=== PATIENT | female | born 1940 | race Caucasian/White ===

== ENCOUNTER 2021-02-08 15:19 | Inpatient (IN) | payer OTHER ==
[~2021-02-08] VITALS: Ht 160 cm; Wt 53.5 kg
[2021-02-08] MEDS ORDERED: GLUCAGON HYDROCHLORIDE (RDNA) 1 MG VIAL IM ONE (18:45)
[2021-02-08] MEDS ORDERED: FAMOTIDINE (10MG/ML) 2ML VL IV ONE (19:15)
[2021-02-08] MEDS ORDERED: GLUCAGON HYDROCHLORIDE (RDNA) 1 MG VIAL IV ONE ×2 (19:15→19:45)
[2021-02-08] MEDS ORDERED: D5W/SOD CHLO 0.9% 1,000 ML IV SCH (21:15)
[2021-02-08] MEDS ORDERED: ONDANSETRON HCL 4 MG/2 ML VIAL IV PRN (21:15)
[2021-02-08 21:20] LABS: Basophils # (auto) 0.1 10 ^3/uL (0-0.2); Basophils % (auto) 0.6 % (0.0-2.0); Eosinophils # (auto) 0.1 10 ^3/uL (0-0.8); Eosinophils % (auto) 0.7 % (0.0-7.0); Hematocrit 42.7 % (36.0-46.0); Hemoglobin 14.3 g/dL (12.2-16.2); Lymphocytes % (auto) 6.3 % (10.0-50.0); Mean Corpuscular Hgb Conc. 33.6 g/dL (32.0-36.0); Mean Corpuscular Volume 89.3 fL (80.0-100.0); Monocytes % (auto) 6.4 % (0.0-12.0); Neutrophils # (auto) 13.5 10 ^3/uL (1.6-8.6); Red Blood Cells 4.78 10^6/uL (4.0-5.20); Red Cell Distribution Width 13.5 % (11.8-14.3); White Blood Cell 15.7 10^3/uL (4.4-10.8)
[2021-02-08 21:28] LABS: Albumin 3.5 g/dL (3.4-5.0); BUN/Creatinine Ratio 27.3; Calcium 9.4 mg/dL (8.5-10.1); Magnesium 1.9 mg/dL (1.6-2.6); Potassium 3.5 mmol/L (3.5-5.1)
[2021-02-08 21:31] LABS: Bilirubin, Total 0.8 mg/dL (0.2-1.0); Total Protein 7.7 g/dL (6.4-8.2)
[2021-02-08 21:35] LABS: INR 1.06 (0.9-1.15)
[2021-02-08] MEDS: D5W/SOD CHL 0.45% 1,000 ML IV SCH (22:30)
[2021-02-09 03:51] LABS: Basophils # (auto) 0.1 10 ^3/uL (0-0.2); Basophils % (auto) 0.9 % (0.0-2.0); Eosinophils # (auto) 0 10 ^3/uL (0-0.8); Eosinophils % (auto) 0.2 % (0.0-7.0); Hematocrit 45.4 % (36.0-46.0); Hemoglobin 14.8 g/dL (12.2-16.2); Lymphocytes # (auto) 0.8 10 ^3/uL (0.4-5.4); Lymphocytes % (auto) 6.2 % (10.0-50.0); Mean Corpuscular Hemoglobin 30.3 pg (28.0-32.0); Mean Corpuscular Hgb Conc. 32.7 g/dL (32.0-36.0); Mean Corpuscular Volume 92.8 fL (80.0-100.0); Monocytes # (auto) 0.8 10 ^3/uL (0-1.3); Monocytes % (auto) 6.3 % (0.0-12.0); Neutrophils # (auto) 11.3 10 ^3/uL (1.6-8.6); Neutrophils % (auto) 86.4 % (37.0-80.0); Red Blood Cells 4.89 10^6/uL (4.0-5.20); Red Cell Distribution Width 14.1 % (11.8-14.3)
[2021-02-09 04:13] LABS: BUN/Creatinine Ratio 30.5; Calcium 9.9 mg/dL (8.5-10.1); Potassium 3.6 mmol/L (3.5-5.1)
[2021-02-09] MEDS ORDERED: cefTRIAXone 1GM/50ML D5W 50 ML IV SCH (09:00)
[2021-02-09] MEDS ORDERED: SODIUM CHLORIDE LOCK 10 ML ONE (09:12)
[2021-02-09] MEDS ORDERED: MIDAZOLAM HCL 5 MG/ML-1ML VIAL ONE (09:12)
[2021-02-09] MEDS ORDERED: diphenhdrAMINE HCL 50 MG/1 ML VL ONE (09:12)
[2021-02-09] MEDS ORDERED: LIDOCAINE VISCOUS 2% 15ML UD ONE (09:12)
[2021-02-09] MEDS ORDERED: fentaNYL CITRATE 100 MCG/2 ML VL ONE (09:13)
[2021-02-09] MEDS ORDERED: PANTOPRAZOLE 40 MG/10 ML VIAL INJ IV SCH (10:00)
[2021-02-09] MEDS ORDERED: FAMOTIDINE (10MG/ML) 2ML VL IV SCH (10:00)
[2021-02-09] MEDS: D5W/SOD CHL 0.45% 1,000 ML IV SCH (12:00)
[2021-02-09 13:00] VITALS: BP 120/76
== END 2021-02-09 13:46 | disposition left against medical advice (07) | DRG 393 ==
LOC: ER 15:19 → OVERFLOW 21:12
PROVIDERS: ADMIT Nurse Practitioner; ATTEND Internal Medicine
DX: T18.128A Food in esophagus causing other injury, initial encounter (principal); U07.1 COVID-19; I10 Essential (primary) hypertension; Z66 Do not resuscitate; M19.90 Unspecified osteoarthritis, unspecified site; K21.9 Gastro-esophageal reflux disease without esophagitis; X58.XXXA Exposure to other specified factors, initial encounter; Z53.29 Procedure and treatment not carried out because of patient's decision for other reasons; Z88.5 Allergy status to narcotic agent; Y93.89 Activity, other specified; Y92.89 Other specified places as the place of occurrence of the external cause; Y99.8 Other external cause status
CPT/HCPCS: 36415; 70490; 71045; 80048; 80053; 83735; 85025; 85610; 87426; 96365; 96375; G0378; J0696; J2250; J3490

== ENCOUNTER → 2021-05-22 | Outpatient (CLI) | payer OTHER ==
[2021-05-22 12:36] LABS: Basophils # (auto) 0.1 10 ^3/uL (0-0.2); Basophils % (auto) 1.5 % (0.0-2.0); Eosinophils # (auto) 0.1 10 ^3/uL (0-0.8); Eosinophils % (auto) 1.8 % (0.0-7.0); Hematocrit 39.2 % (36.0-46.0); Hemoglobin 13.1 g/dL (12.2-16.2); Lymphocytes # (auto) 0.9 10 ^3/uL (0.4-5.4); Lymphocytes % (auto) 20.6 % (10.0-50.0); Mean Corpuscular Hemoglobin 30.1 pg (28.0-32.0); Mean Corpuscular Hgb Conc. 33.5 g/dL (32.0-36.0); Mean Corpuscular Volume 89.9 fL (80.0-100.0); Monocytes # (auto) 0.4 10 ^3/uL (0-1.3); Monocytes % (auto) 8.4 % (0.0-12.0); Neutrophils # (auto) 3.1 10 ^3/uL (1.6-8.6); Neutrophils % (auto) 67.7 % (37.0-80.0); Nucleated Red Blood Cells % 0.2 %; Red Blood Cells 4.36 10^6/uL (4.0-5.20); Red Cell Distribution Width 13.1 % (11.8-14.3); White Blood Cell 4.6 10^3/uL (4.4-10.8)
[2021-05-22 12:38] LABS: Urine Blood Negative /uL (Negative)
[2021-05-22 12:51] LABS: INR 1.06 (0.9-1.15); Partial Thromboplastin Time 26.2 sec (23.6-33.0)
[2021-05-22 13:15] LABS: Albumin 3.4 g/dL (3.4-5.0); Calcium 9.3 mg/dL (8.5-10.1); Potassium 3.6 mmol/L (3.5-5.1)
[2021-05-22 13:18] LABS: BUN/Creatinine Ratio 17.5; Bilirubin, Total 0.4 mg/dL (0.2-1.0); Total Protein 6.8 g/dL (6.4-8.2)
== END | disposition home or self-care (01) ==
LOC: LAB 12:17
PROVIDERS: ATTEND Specialist
DX: Z01.812 Encounter for preprocedural laboratory examination (principal); H25.11 Age-related nuclear cataract, right eye; Z79.01 Long term (current) use of anticoagulants
CPT/HCPCS: 36415; 80053; 81003; 85025; 85610; 85730

== ENCOUNTER → 2021-10-26 | Outpatient (CLI) | payer OTHER ==
[2021-10-26 09:37] LABS: Basophils # (auto) 0.1 10 ^3/uL (0-0.2); Basophils % (auto) 1.2 % (0.0-2.0); Eosinophils # (auto) 0.2 10 ^3/uL (0-0.8); Eosinophils % (auto) 2.8 % (0.0-7.0); Hematocrit 40.6 % (36.0-46.0); Hemoglobin 13.5 g/dL (12.2-16.2); Lymphocytes # (auto) 0.9 10 ^3/uL (0.4-5.4); Lymphocytes % (auto) 15.1 % (10.0-50.0); Mean Corpuscular Hemoglobin 29.9 pg (28.0-32.0); Mean Corpuscular Hgb Conc. 33.4 g/dL (32.0-36.0); Mean Corpuscular Volume 89.5 fL (80.0-100.0); Monocytes # (auto) 0.5 10 ^3/uL (0-1.3); Neutrophils # (auto) 4.1 10 ^3/uL (1.6-8.6); Neutrophils % (auto) 72.9 % (37.0-80.0); Red Blood Cells 4.53 10^6/uL (4.0-5.20); Red Cell Distribution Width 13.2 % (11.8-14.3); White Blood Cell 5.7 10^3/uL (4.4-10.8)
[2021-10-26 09:51] LABS: Potassium 3.9 mmol/L (3.5-5.1)
[2021-10-26 12:01] LABS: BUN/Creatinine Ratio 18.2
[2021-10-26 12:02] LABS: Albumin 3.2 g/dL (3.4-5.0); Bilirubin, Total 0.8 mg/dL (0.2-1.0); Calcium 8.7 mg/dL (8.5-10.1); Total Protein 7.3 g/dL (6.4-8.2)
== END | disposition home or self-care (01) ==
LOC: LAB 09:11
PROVIDERS: ATTEND Student in an Organized Health Care Education/Training Program
DX: E78.49 Other hyperlipidemia (principal); F33.1 Major depressive disorder, recurrent, moderate; M81.0 Age-related osteoporosis without current pathological fracture; K21.9 Gastro-esophageal reflux disease without esophagitis; I10 Essential (primary) hypertension
CPT/HCPCS: 36415; 80053; 80061; 85025

== ENCOUNTER → 2022-01-25 | Outpatient (CLI) | payer OTHER ==
[2022-01-25 12:21] LABS: Potassium 4.1 mmol/L (3.5-5.1)
[2022-01-25 12:26] LABS: BUN/Creatinine Ratio 24.1; Calcium 9.5 mg/dL (8.5-10.1)
[2022-01-26 15:39] LABS: Folate (Folic Acid) 13.64 ng/mL (5.38-24)
== END | disposition home or self-care (01) ==
LOC: LAB 11:25
PROVIDERS: ATTEND Student in an Organized Health Care Education/Training Program
DX: G62.9 Polyneuropathy, unspecified (principal)
CPT/HCPCS: 36415; 80048; 82607; 82746; 83036; 84443

== ENCOUNTER 2022-04-03 09:39 | Inpatient (IN) | payer OTHER ==
[~2022-04-03] VITALS: Ht 157.5 cm; Wt 61.0 kg
[2022-04-03 00:30] VITALS: BP 128/74
[2022-04-03] MEDS ORDERED: dilTIAZem 25 MG/5 ML VIAL IV ONE (10:00)
[2022-04-03 10:48] LABS: Basophils # (auto) 0 10 ^3/uL (0-0.2); Basophils % (auto) 0.3 % (0.0-2.0); Eosinophils # (auto) 0 10 ^3/uL (0-0.8); Eosinophils % (auto) 0.1 % (0.0-7.0); Hematocrit 41.1 % (36.0-46.0); Hemoglobin 13.6 g/dL (12.2-16.2); Lymphocytes # (auto) 0.5 10 ^3/uL (0.4-5.4); Lymphocytes % (auto) 6.2 % (10.0-50.0); Mean Corpuscular Hemoglobin 29.6 pg (28.0-32.0); Mean Corpuscular Hgb Conc. 33.1 g/dL (32.0-36.0); Mean Corpuscular Volume 89.3 fL (80.0-100.0); Monocytes # (auto) 0.3 10 ^3/uL (0-1.3); Monocytes % (auto) 3.5 % (0.0-12.0); Neutrophils # (auto) 7.1 10 ^3/uL (1.6-8.6); Neutrophils % (auto) 89.9 % (37.0-80.0); Red Cell Distribution Width 13.4 % (11.8-14.3); White Blood Cell 7.9 10^3/uL (4.4-10.8)
[2022-04-03 10:55] LABS: INR 1.02 (0.9-1.15); Partial Thromboplastin Time 25.9 sec (24.6-33.4)
[2022-04-03 11:09] LABS: Potassium 3.2 mmol/L (3.5-5.1)
[2022-04-03 11:16] LABS: Albumin 3.7 g/dL (3.4-5.0); BUN/Creatinine Ratio 17.8; Bilirubin, Total 0.7 mg/dL (0.2-1.0); Total Protein 7.1 g/dL (6.4-8.2)
[2022-04-03] MEDS ORDERED: ONDANSETRON HCL 4 MG/2 ML VIAL IV ONE ×2 (12:45→16:15)
[2022-04-03] MEDS ORDERED: POTASSIUM EFFERVESENT TAB 25 MEQ PO ONE (13:45)
[2022-04-03] MEDS ORDERED: ENOXAPARIN SOD 60 MG/0.6 ML SYRINGE SC ONE (13:45)
[2022-04-03] MEDS ORDERED: MORPHINE SULFATE INJ 2 MG/ml SYRG IV PRN (16:00)
[2022-04-03] MEDS ORDERED: NITROGLYCERIN 0.4 MG SL TAB SL PRN (16:00)
[2022-04-03] MEDS ORDERED: OMNIPAQUE ORAL SOLN 500ml 12mg/ml PO ONE (16:10)
[2022-04-03] MEDS ORDERED: MAGNESIUM SULFATE 1GM/100ML 100 ML IV ONE (16:15)
[2022-04-03] MEDS ORDERED: PANTOPRAZOLE 40mg/50ML NS AE 50 ML IV ONE (16:15)
[2022-04-03] MEDS ORDERED: SODIUM CHLORIDE 0.9% 1,000 ML IV ONE (16:15)
[2022-04-03] MEDS ORDERED: POTASSIUM CHLORIDE 40 MEQ, LIDOCAINE 1% (LOCAL ANESTH.) 4 ML in SODIUM CHL 0.9% 250 ML IV ONE (16:15)
[2022-04-03 16:36] LABS: Urine Bacteria NONE SEEN /hpf (None Seen); Urine Blood Negative /uL (Negative); Urine Hyaline Cast FEW /lpf (0 - 2); Urine Mucus FEW (None Seen); Urine Specific Gravity 1.012 (1.001-1.035); Urine WBC 1 /hpf (0 - 5)
[2022-04-03 16:58] LABS: Alcohol, Urine < 3.0 mg/dL (0-10); Amphetamine Screen, Urine NEGATIVE (NEGATIVE); Barbiturate Scree,Urine NEGATIVE (NEGATIVE); Benzodiazephine Screen, Urine NEGATIVE (NEGATIVE); Cannabinoid Screen, Urine NEGATIVE (NEGATIVE); Cocaine Screen, Urine NEGATIVE (NEGATIVE); Opiate Scree,Urine NEGATIVE (NEGATIVE); Phencyclidine Screen, Urine NEGATIVE (NEGATIVE)
[2022-04-03] MEDS: ATORVASTATIN 20 MG TAB PO SCH (16:59)
[2022-04-03] MEDS ORDERED: IOHEXOL 300 MG/ML 100ML BOTTLE IJ ONE (17:53)
[2022-04-03 18:22] LABS: INR 1.03 (0.9-1.15)
[2022-04-03 18:33] LABS: Cholesterol 143 mg/dL (< 200)
[2022-04-03 18:35] LABS: HDL Cholesterol 71 mg/dL (40-59); LDL Cholesterol 70 mg/dL (< 100); Triglycerides 58 mg/dL (< 150)
[2022-04-03] MEDS ORDERED: IOHEXOL 350 MG/ML 100ML IJ ONE (20:56)
[2022-04-03] MEDS: METOPROLOL TARTRATE 25 MG TAB PO SCH (22:00)
[2022-04-03] MEDS: AMIODARONE HCL 200 MG TAB PO SCH (22:00)
[2022-04-03 22:32] LABS: Hematocrit 42.1 % (36.0-46.0); Hemoglobin 14.1 g/dL (12.2-16.2)
[2022-04-03] MEDS: ONDANSETRON HCL 4 MG/2 ML VIAL IV PRN (22:53)
[2022-04-04 00:30] VITALS: BP 128/74
[2022-04-04] MEDS: D5W/SOD CHL 0.45%/KCL 20MEQ 1,000 ML IV SCH ×2 (01:13→11:40)
[2022-04-04] MEDS: ONDANSETRON HCL 4 MG/2 ML VIAL IV PRN (02:54)
[2022-04-04] MEDS ORDERED: CYCL-839 PO (03:30)
[2022-04-04] MEDS ORDERED: SIMV-8 PO (03:30)
[2022-04-04] MEDS ORDERED: TRAM50TA2 PO (03:30)
[2022-04-04] MEDS ORDERED: PARO1TAB33 PO (03:30)
[2022-04-04 05:00] VITALS: BP 121/67
[2022-04-04] MEDS: metroNIDAZOLE 500MG/100ML 100 ML IV SCH ×2 (05:51→14:30)
[2022-04-04 06:51] LABS: Basophils # (auto) 0 10 ^3/uL (0-0.2); Basophils % (auto) 0.1 % (0.0-2.0); Eosinophils # (auto) 0 10 ^3/uL (0-0.8); Hematocrit 37.6 % (36.0-46.0); Hemoglobin 12.5 g/dL (12.2-16.2); Lymphocytes # (auto) 0.2 10 ^3/uL (0.4-5.4); Lymphocytes % (auto) 1.4 % (10.0-50.0); Mean Corpuscular Hemoglobin 30.3 pg (28.0-32.0); Mean Corpuscular Hgb Conc. 33.3 g/dL (32.0-36.0); Mean Corpuscular Volume 91.1 fL (80.0-100.0); Monocytes # (auto) 1.2 10 ^3/uL (0-1.3); Monocytes % (auto) 7.2 % (0.0-12.0); Neutrophils # (auto) 15.5 10 ^3/uL (1.6-8.6); Neutrophils % (auto) 91.3 % (37.0-80.0); Red Blood Cells 4.13 10^6/uL (4.0-5.20); Red Cell Distribution Width 13.3 % (11.8-14.3)
[2022-04-04 07:06] LABS: Potassium 3.5 mmol/L (3.5-5.1)
[2022-04-04 07:14] LABS: Albumin 2.9 g/dL (3.4-5.0); BUN/Creatinine Ratio 30.3; Bilirubin, Total 0.8 mg/dL (0.2-1.0); Calcium 8.9 mg/dL (8.5-10.1); Total Protein 5.9 g/dL (6.4-8.2)
[2022-04-04] MEDS: ceFAZolin 2 GM in D5W 5% 100 ML IV SCH ×2 (07:44→14:31)
[2022-04-04 09:00] VITALS: BP 106/53
[2022-04-04] MEDS ORDERED: ASPirin 81 mg TAB PO SCH (10:00)
[2022-04-04] MEDS: AMIODARONE HCL 200 MG TAB PO SCH ×2 (11:41→22:05)
[2022-04-04] MEDS: METOPROLOL TARTRATE 25 MG TAB PO SCH ×2 (11:42→22:07)
[2022-04-04 13:00] VITALS: BP 112/53
[2022-04-04 16:33] VITALS: BP 104/53
[2022-04-04] MEDS ORDERED: ASPirin 81 mg TAB PO ONE (17:30)
[2022-04-04] MEDS: PIPERACILLIN-TAZOB 3.375GM 100 ML IV SCH (18:25)
[2022-04-04 22:00] VITALS: BP 106/49
[2022-04-04] MEDS: ATORVASTATIN 20 MG TAB PO SCH (22:06)
[2022-04-05] MEDS: PIPERACILLIN-TAZOB 3.375GM 100 ML IV SCH ×5 (00:28→23:46)
[2022-04-05 04:56] VITALS: BP 105/42
[2022-04-05 07:05] LABS: Basophils # (auto) 0.1 10 ^3/uL (0-0.2); Basophils % (auto) 0.5 % (0.0-2.0); Eosinophils # (auto) 0.2 10 ^3/uL (0-0.8); Eosinophils % (auto) 1.4 % (0.0-7.0); Hematocrit 32.4 % (36.0-46.0); Hemoglobin 10.8 g/dL (12.2-16.2); Lymphocytes # (auto) 0.7 10 ^3/uL (0.4-5.4); Lymphocytes % (auto) 5.9 % (10.0-50.0); Mean Corpuscular Hemoglobin 30.3 pg (28.0-32.0); Mean Corpuscular Hgb Conc. 33.5 g/dL (32.0-36.0); Mean Corpuscular Volume 90.5 fL (80.0-100.0); Monocytes % (auto) 7.9 % (0.0-12.0); Neutrophils # (auto) 10.7 10 ^3/uL (1.6-8.6); Neutrophils % (auto) 84.3 % (37.0-80.0); Red Blood Cells 3.58 10^6/uL (4.0-5.20); Red Cell Distribution Width 13.5 % (11.8-14.3); White Blood Cell 12.7 10^3/uL (4.4-10.8)
[2022-04-05 07:08] LABS: BUN/Creatinine Ratio 27.1; Potassium 3.8 mmol/L (3.5-5.1)
[2022-04-05 09:00] VITALS: BP 105/56
[2022-04-05] MEDS: ASPirin 81 mg TAB PO SCH (09:48)
[2022-04-05] MEDS: AMIODARONE HCL 200 MG TAB PO SCH ×2 (09:48→22:49)
[2022-04-05] MEDS: METOPROLOL TARTRATE 25 MG TAB PO SCH ×2 (09:55→22:49)
[2022-04-05 13:00] VITALS: BP 104/50
[2022-04-05 17:00] VITALS: BP 103/47
[2022-04-05 22:00] VITALS: BP 120/60
[2022-04-05] MEDS: ATORVASTATIN 20 MG TAB PO SCH (22:49)
[2022-04-06 05:00] VITALS: BP 104/51
[2022-04-06] MEDS: PIPERACILLIN-TAZOB 3.375GM 100 ML IV SCH ×3 (06:32→17:43)
[2022-04-06 08:57] VITALS: BP 113/52
[2022-04-06] MEDS: AMIODARONE HCL 200 MG TAB PO SCH ×2 (09:21→22:10)
[2022-04-06] MEDS: ASPirin 81 mg TAB PO SCH (09:22)
[2022-04-06] MEDS: METOPROLOL TARTRATE 25 MG TAB PO SCH ×2 (09:22→22:11)
[2022-04-06 16:16] VITALS: BP 125/65
[2022-04-06 22:00] VITALS: BP 115/56
[2022-04-06] MEDS: ATORVASTATIN 20 MG TAB PO SCH (22:10)
[2022-04-07] MEDS: PIPERACILLIN-TAZOB 3.375GM 100 ML IV SCH ×3 (00:07→11:09)
[2022-04-07 05:00] VITALS: BP 125/54
[2022-04-07 09:00] VITALS: BP 131/55
[2022-04-07] MEDS: ASPirin 81 mg TAB PO SCH (09:50)
[2022-04-07] MEDS: AMIODARONE HCL 200 MG TAB PO SCH (09:50)
[2022-04-07] MEDS: METOPROLOL TARTRATE 25 MG TAB PO SCH (09:51)
[2022-04-07] MEDS: THROAT LOZENGES(CEPASTAT) MT PRN ×2 (10:07→12:48)
[2022-04-07 13:00] VITALS: BP 140/64
[2022-04-07] MEDS ORDERED: MET25T PO (14:08)
[2022-04-07] MEDS ORDERED: AMIO200T4 PO (14:08)
[2022-04-07] MEDS ORDERED: ASPI-325 PO (14:08)
[2022-04-07 17:00] VITALS: BP 125/56
[2022-04-07] MEDS ORDERED: LOPERAMIDE HCL 2 MG CAP/TAB PO ONE (17:00)
[2022-04-07 17:27] VITALS: BP 140/64
== END 2022-04-07 17:40 | disposition home or self-care (01) | DRG 280 ==
LOC: ER 09:39 → EDBD 09:39 → TELE 15:58 → TELE-WESTW 23:52
PROVIDERS: ADMIT Registered Nurse; ATTEND Internal Medicine
DX: I21.4 Non-ST elevation (NSTEMI) myocardial infarction (principal); I50.23 Acute on chronic systolic (congestive) heart failure; J96.00 Acute respiratory failure, unspecified whether with hypoxia or hypercapnia; K56.2 Volvulus; N39.0 Urinary tract infection, site not specified; I48.20 Chronic atrial fibrillation, unspecified; K92.2 Gastrointestinal hemorrhage, unspecified; E87.6 Hypokalemia; K31.89 Other diseases of stomach and duodenum; Z20.822 Contact with and (suspected) exposure to COVID-19; K44.9 Diaphragmatic hernia without obstruction or gangrene; I11.0 Hypertensive heart disease with heart failure; R13.12 Dysphagia, oropharyngeal phase; K21.9 Gastro-esophageal reflux disease without esophagitis; M19.90 Unspecified osteoarthritis, unspecified site; M81.0 Age-related osteoporosis without current pathological fracture; G89.29 Other chronic pain; M54.9 Dorsalgia, unspecified; Z88.5 Allergy status to narcotic agent; Z88.8 Allergy status to other drugs, medicaments and biological substances; Z79.899 Other long term (current) drug therapy; Z90.710 Acquired absence of both cervix and uterus
CPT/HCPCS: 36415; 36600; 70450; 71045; 71260; 74177; 80048; 80053; 80061; 80307; 81001; 82805; 83036; 83735; 83880; 84443; 84484; 85014; 85018; 85025; 85610; 85730; 86850; 86900; 86901; 87086; 87426; 93005; 93306; 96365; 96366; 96367; 96368; 96372; 96375; 96376; G0378; J0690; J2001; J2405; J2543; J3490; J7060

== ENCOUNTER 2022-09-02 09:25 | Inpatient (IN) | payer OTHER ==
[~2022-09-02] VITALS: Ht 160 cm; Wt 54.5 kg
[~2022-09-02 09:25] MED LIST: AMIO200T4 PO; ASPI-325 PO; MET25T PO; SIMV-8 PO
[2022-09-02] MEDS ORDERED: PROCHLORPERAZINE EDISYLATE 5 MG/ML 2ML VIAL IM ONE (10:00)
[2022-09-02 10:21] LABS: Basophils # (auto) 0.1 10 ^3/uL (0-0.2); Basophils % (auto) 1.4 % (0.0-2.0); Eosinophils # (auto) 0.1 10 ^3/uL (0-0.8); Eosinophils % (auto) 2.1 % (0.0-7.0); Hematocrit 41.7 % (36.0-46.0); Hemoglobin 13.9 g/dL (12.2-16.2); Lymphocytes # (auto) 0.8 10 ^3/uL (0.4-5.4); Lymphocytes % (auto) 14.5 % (10.0-50.0); Mean Corpuscular Hemoglobin 29.1 pg (28.0-32.0); Mean Corpuscular Hgb Conc. 33.4 g/dL (32.0-36.0); Mean Corpuscular Volume 87.1 fL (80.0-100.0); Monocytes # (auto) 0.5 10 ^3/uL (0-1.3); Monocytes % (auto) 8.3 % (0.0-12.0); Neutrophils # (auto) 4.3 10 ^3/uL (1.6-8.6); Neutrophils % (auto) 73.7 % (37.0-80.0); Nucleated Red Blood Cells % 0.1 %; Red Blood Cells 4.79 10^6/uL (4.0-5.20); Red Cell Distribution Width 15.7 % (11.8-14.3); White Blood Cell 5.8 10^3/uL (4.4-10.8)
[2022-09-02 10:27] LABS: Urine Bacteria NONE SEEN /hpf (None Seen); Urine Blood 1+ /uL (Negative); Urine Specific Gravity 1.011 (1.001-1.035); Urine WBC 1 /hpf (0 - 5)
[2022-09-02 10:32] LABS: Albumin 3.4 g/dL (3.4-5.0); Calcium 8.9 mg/dL (8.5-10.1)
[2022-09-02 10:41] LABS: BUN/Creatinine Ratio 16.7 (10.0-20.0); Bilirubin, Total 0.7 mg/dL (0.2-1.0); Total Protein 7.2 g/dL (6.4-8.2)
[2022-09-02] MEDS ORDERED: ACETAMINOPHEN 325 MG TAB PO PRN (13:30)
[2022-09-02] MEDS ORDERED: HYDROcodone-ACET 5/325MG TAB PO PRN (13:30)
[2022-09-02] MEDS ORDERED: DOCUSATE SOD 100 MG CAP PO PRN (13:30)
[2022-09-02] MEDS ORDERED: NITROGLYCERIN 0.4 MG SL TAB SL PRN (13:30)
[2022-09-02] MEDS ORDERED: ONDANSETRON HCL 4 MG/2 ML VIAL IV PRN (13:30)
[2022-09-02] MEDS ORDERED: MORPHINE SULFATE INJ 2 MG/ml SYRG IV PRN (13:30)
[2022-09-02] MEDS: SODIUM CHLOR 0.9% PF (SALINE LOCK) 10ML VIAL/SYR IV SCH ×2 (14:07→22:58)
[2022-09-02] MEDS: LOSARTAN POTASSIUM 50 MG TAB PO SCH (14:56)
[2022-09-02] MEDS ORDERED: hydrALAZINE HCL 20 MG/ML VL IV ONE (21:00)
[2022-09-02] MEDS ORDERED: ATORVASTATIN 20 MG TAB PO SCH (22:00)
[2022-09-03] VITALS (12 sets, daily range): BP systolic 122–165; BP diastolic 50–73
[2022-09-03] MEDS: SODIUM CHLOR 0.9% PF (SALINE LOCK) 10ML VIAL/SYR IV SCH ×2 (06:07→14:05)
[2022-09-03 06:08] LABS: Basophils # (auto) 0.1 10 ^3/uL (0-0.2); Basophils % (auto) 0.9 % (0.0-2.0); Eosinophils # (auto) 0 10 ^3/uL (0-0.8); Eosinophils % (auto) 0.2 % (0.0-7.0); Hemoglobin 13.2 g/dL (12.2-16.2); Lymphocytes # (auto) 0.8 10 ^3/uL (0.4-5.4); Lymphocytes % (auto) 9.6 % (10.0-50.0); Mean Corpuscular Hemoglobin 28.9 pg (28.0-32.0); Mean Corpuscular Hgb Conc. 33.8 g/dL (32.0-36.0); Mean Corpuscular Volume 85.5 fL (80.0-100.0); Monocytes # (auto) 0.6 10 ^3/uL (0-1.3); Neutrophils # (auto) 6.6 10 ^3/uL (1.6-8.6); Neutrophils % (auto) 82.3 % (37.0-80.0); Nucleated Red Blood Cells % 0.1 %; Red Blood Cells 4.56 10^6/uL (4.0-5.20); Red Cell Distribution Width 15.5 % (11.8-14.3)
[2022-09-03 06:26] LABS: Albumin 3.3 g/dL (3.4-5.0); BUN/Creatinine Ratio 16.2 (10.0-20.0); Calcium 8.8 mg/dL (8.5-10.1); Potassium 3.6 mmol/L (3.5-5.1)
[2022-09-03 06:29] LABS: Bilirubin, Total 0.7 mg/dL (0.2-1.0); Total Protein 6.9 g/dL (6.4-8.2)
[2022-09-03] MEDS ORDERED: ASPirin-EC 81 mg tab PO SCH (10:00)
[2022-09-03] MEDS ORDERED: PANTOPRAZOLE 40 MG/10 ML VIAL INJ IV SCH (10:00)
[2022-09-03] MEDS: LOSARTAN POTASSIUM 50 MG TAB PO SCH (11:30)
[2022-09-03 13:01] LABS: INR 1.1 (0.9-1.15); Partial Thromboplastin Time 26.4 sec (24.6-33.4)
[2022-09-03] MEDS ORDERED: VERAPAMIL 2.5MG/ML INJ 2ML VIAL IV ONE (13:17)
[2022-09-03] MEDS ORDERED: MIDAZOLAM HCL 2MG/2ML 2ml VIAL (1mg/ml) ONE (13:17)
[2022-09-03] MEDS ORDERED: HEPARIN SODIUM (PORCINE) 5000 UNITS/ML 1ML VIAL ONE (13:17)
[2022-09-03] MEDS ORDERED: fentaNYL CITRATE 100 MCG/2 ML VL ONE (13:17)
[2022-09-03] MEDS ORDERED: LIDOCAINE 2%HCL (LOCAL ANESTH.) INJ 20ML MDV ONE (13:17)
[2022-09-03] MEDS ORDERED: IODIXANOL 320MG/ML 100ML BTL IV ONE (13:18)
== END 2022-09-03 17:30 | disposition home or self-care (01) | DRG 309 ==
LOC: ER 09:25 → TELE 13:26
PROVIDERS: ADMIT Nurse Practitioner Family; ATTEND Internal Medicine
DX: I48.20 Chronic atrial fibrillation, unspecified (principal); I50.22 Chronic systolic (congestive) heart failure; H93.19 Tinnitus, unspecified ear; R00.1 Bradycardia, unspecified; R42 Dizziness and giddiness; Z20.822 Contact with and (suspected) exposure to COVID-19; E78.5 Hyperlipidemia, unspecified; I11.0 Hypertensive heart disease with heart failure; Z79.899 Other long term (current) drug therapy; Z90.710 Acquired absence of both cervix and uterus; Z88.5 Allergy status to narcotic agent
CPT/HCPCS: 36415; 70450; 71045; 80053; 81001; 82962; 83735; 84439; 84443; 84484; 85025; 85610; 85730; 87426; 93005; 96372; C9113; G0378; J2250; Q9967

== ENCOUNTER → 2022-09-10 | Outpatient (CLI) | payer MEDICARE ==
[~2022-09-10] MED LIST changes: -AMIO200T4 PO
== END | disposition home or self-care (01) ==
LOC: LAB 10:12
PROVIDERS: ATTEND Licensed Practical Nurse
DX: N39.0 Urinary tract infection, site not specified (principal)
CPT/HCPCS: 87086; 87088; 87186

== ENCOUNTER 2022-10-02 15:19 | Emergency (ER) | payer OTHER ==
[~2022-10-02] VITALS: Ht 160 cm; Wt 50.9 kg
[2022-10-02] MEDS ORDERED: SODIUM CHLORIDE 0.9% 1,000 ML IV ONE (16:00)
[2022-10-02 16:20] LABS: Basophils # (auto) 0.1 10 ^3/uL (0-0.2); Basophils % (auto) 1.9 % (0.0-2.0); Eosinophils # (auto) 0.1 10 ^3/uL (0-0.8); Eosinophils % (auto) 1.2 % (0.0-7.0); Hematocrit 39.8 % (36.0-46.0); Hemoglobin 13.3 g/dL (12.2-16.2); Lymphocytes # (auto) 0.8 10 ^3/uL (0.4-5.4); Mean Corpuscular Hgb Conc. 33.4 g/dL (32.0-36.0); Mean Corpuscular Volume 86.8 fL (80.0-100.0); Monocytes # (auto) 0.6 10 ^3/uL (0-1.3); Monocytes % (auto) 8.2 % (0.0-12.0); Neutrophils # (auto) 5.2 10 ^3/uL (1.6-8.6); Neutrophils % (auto) 76.7 % (37.0-80.0); Nucleated Red Blood Cells % 0.1 %; Red Blood Cells 4.59 10^6/uL (4.0-5.20); Red Cell Distribution Width 15.6 % (11.8-14.3); White Blood Cell 6.8 10^3/uL (4.4-10.8)
[2022-10-02 16:45] LABS: Urine Bacteria NONE SEEN /hpf (None Seen); Urine Blood TRACE /uL (Negative); Urine Specific Gravity 1.005 (1.001-1.035); Urine WBC <1 /hpf (0 - 5)
[2022-10-02 16:45] LABS: Albumin 3.3 g/dL (3.4-5.0); BUN/Creatinine Ratio 17.7 (10.0-20.0); Calcium 9.3 mg/dL (8.5-10.1); Potassium 3.8 mmol/L (3.5-5.1)
[2022-10-02 16:47] LABS: Bilirubin, Total 0.6 mg/dL (0.2-1.0); Total Protein 7.2 g/dL (6.4-8.2)
[2022-10-02] MEDS ORDERED: IOHEXOL 350 MG/ML 100ML IJ ONE (17:10)
[2022-10-02 20:40] VITALS: BP 179/80
== END 2022-10-02 20:59 | disposition home or self-care (01) ==
LOC: EDBD 15:19 → ER 15:19
DX: R55 Syncope and collapse (principal); I48.91 Unspecified atrial fibrillation; K21.9 Gastro-esophageal reflux disease without esophagitis; I10 Essential (primary) hypertension; E78.5 Hyperlipidemia, unspecified; Z88.5 Allergy status to narcotic agent; Z79.899 Other long term (current) drug therapy
CPT/HCPCS: 36415; 70450; 71275; 80053; 81001; 82962; 84484; 85025; 85379; 93005; 99285; J7030; Q9967; 96360

== ENCOUNTER 2023-02-12 18:03 | Inpatient (IN) | payer OTHER ==
[~2023-02-12] VITALS: Ht 160 cm; Wt 51.3 kg
[~2023-02-12 18:03] MED LIST changes: -SIMV-8 PO; +SIMV20TA20 PO
[2023-02-12 18:36] LABS: Basophils # (auto) 0.1 10 ^3/uL (0-0.2); Eosinophils # (auto) 0.2 10 ^3/uL (0-0.8); Eosinophils % (auto) 2.7 % (0.0-7.0); Hematocrit 39.4 % (36.0-46.0); Hemoglobin 13.4 g/dL (12.2-16.2); Lymphocytes # (auto) 1.3 10 ^3/uL (0.4-5.4); Mean Corpuscular Hemoglobin 30.3 pg (28.0-32.0); Mean Corpuscular Hgb Conc. 33.9 g/dL (32.0-36.0); Mean Corpuscular Volume 89.3 fL (80.0-100.0); Monocytes # (auto) 0.6 10 ^3/uL (0-1.3); Monocytes % (auto) 9.7 % (0.0-12.0); Neutrophils # (auto) 4.3 10 ^3/uL (1.6-8.6); Neutrophils % (auto) 65.6 % (37.0-80.0); Nucleated Red Blood Cells % 0.1 %; Red Blood Cells 4.41 10^6/uL (4.0-5.20); Red Cell Distribution Width 13.9 % (11.8-14.3); White Blood Cell 6.6 10^3/uL (4.4-10.8)
[2023-02-12 18:51] LABS: Alanine Aminotransferase 15 U/L (7-40); Albumin 4.2 g/dL (3.2-4.8); Alkaline Phosphatase 59 U/L (46-116); Anion Gap 4.6 (5-15); Aspartate Aminotransferase 19 U/L (13-40); BUN/Creatinine Ratio 20.5 (10.0-20.0); Bilirubin, Total 0.7 mg/dL (0.2-1.0); Blood Urea Nitrogen 18 mg/dL (9-23); Calcium 9.7 mg/dL (8.7-10.4); Carbon Dioxide 27.4 mmol/L (20-30); Chloride 102 mmol/L (98-107); Glucose 113 mg/dL (74-106); Potassium 3.3 mmol/L (3.5-5.1); Sodium 134 mmol/L (136-145); Total Protein 7.1 g/dL (5.7-8.2)
[2023-02-12] MEDS ORDERED: ACETAMINOPHEN 325 MG TAB PO PRN (21:15)
[2023-02-12] MEDS ORDERED: NITROGLYCERIN 0.4 MG SL TAB SL PRN (21:15)
[2023-02-12] MEDS ORDERED: POTASSIUM CHL 20 Meq TABLET PO ONE (21:15)
[2023-02-12] MEDS ORDERED: MORPHINE SULFATE INJ 2 MG/ml SYRG IV PRN (21:15)
[2023-02-12] MEDS ORDERED: PANT40T PO (21:39)
[2023-02-12] MEDS ORDERED: METOPROLOL TARTRATE 25 MG TAB PO SCH (22:00)
[2023-02-12] MEDS ORDERED: ATORVASTATIN 20 MG TAB PO SCH (22:00)
[2023-02-13 00:26] VITALS: PULSE 57; RESP 20; O2SAT 96
[2023-02-13] MEDS ORDERED: hydrALAZINE HCL 20 MG/ML VL IV ONE (00:45)
[2023-02-13 07:11] LABS: Basophils # (auto) 0.1 10 ^3/uL (0-0.2); Eosinophils # (auto) 0.1 10 ^3/uL (0-0.8); Eosinophils % (auto) 0.6 % (0.0-7.0); Hematocrit 38.4 % (36.0-46.0); Hemoglobin 13.2 g/dL (12.2-16.2); Lymphocytes % (auto) 11.8 % (10.0-50.0); Mean Corpuscular Hemoglobin 30.3 pg (28.0-32.0); Mean Corpuscular Hgb Conc. 34.4 g/dL (32.0-36.0); Mean Corpuscular Volume 88.1 fL (80.0-100.0); Monocytes # (auto) 0.5 10 ^3/uL (0-1.3); Monocytes % (auto) 6.4 % (0.0-12.0); Neutrophils # (auto) 6.4 10 ^3/uL (1.6-8.6); Neutrophils % (auto) 80.2 % (37.0-80.0); Nucleated Red Blood Cells % 0.1 %; Red Blood Cells 4.36 10^6/uL (4.0-5.20); Red Cell Distribution Width 13.8 % (11.8-14.3); White Blood Cell 8.1 10^3/uL (4.4-10.8)
[2023-02-13 07:27] LABS: Alanine Aminotransferase 12 U/L (7-40); Alkaline Phosphatase 49 U/L (46-116); Anion Gap 5.6 (5-15); Aspartate Aminotransferase 21 U/L (13-40); BUN/Creatinine Ratio 17.2 (10.0-20.0); Bilirubin, Total 0.9 mg/dL (0.2-1.0); Blood Urea Nitrogen 15 mg/dL (9-23); Calcium 9.7 mg/dL (8.5-10.1); Carbon Dioxide 26.4 mmol/L (20-30); Chloride 104 mmol/L (98-107); Glucose 102 mg/dL (74-106); Sodium 136 mmol/L (136-145); Total Protein 7.1 g/dL (5.7-8.2)
[2023-02-13 09:00] VITALS: BP 146/61; PULSE 63; RESP 17; TEMP 98; O2SAT 93
[2023-02-13] MEDS ORDERED: PANTOPRAZOLE 40 MG TAB PO SCH (10:00)
[2023-02-13] MEDS ORDERED: LOSARTAN POTASSIUM 50 MG TAB PO SCH (10:00)
[2023-02-13] MEDS ORDERED: ASPirin-EC 81 mg tab PO SCH (10:00)
[2023-02-13] MEDS ORDERED: HCTZ 25 MG TAB PO SCH (10:00)
[2023-02-13] MEDS ORDERED: ISOSORBIDE MONONITRATE ER 60 MG TAB PO ONE (10:45)
[2023-02-13 11:06] LABS: Triglycerides 62 mg/dL (< 150)
[2023-02-13 11:07] LABS: Cholesterol 138 mg/dL (< 200); LDL Cholesterol 73 mg/dL (< 100)
[2023-02-13 11:08] LABS: HDL Cholesterol 55 mg/dL (40-59)
[2023-02-13 13:00] VITALS: BP 129/57; PULSE 71; RESP 17; TEMP 97.8; O2SAT 94
[2023-02-13] MEDS ORDERED: NITR0.4S29 SL (15:09)
[2023-02-13] MEDS ORDERED: ISO60SRT PO (15:09)
[2023-02-13] MEDS ORDERED: LOSA50TA46 PO (15:09)
[2023-02-13] MEDS ORDERED: HYDR25TA5 PO (15:09)
[2023-02-13 17:00] VITALS: BP 129/73; PULSE 80; RESP 18; TEMP 97.9; O2SAT 95
[2023-02-13 18:15] VITALS: BP 146/61; PULSE 57; TEMP 36.6
[2023-02-14] MEDS ORDERED: ISOSORBIDE MONONITRATE ER 60 MG TAB PO SCH (10:00)
== END 2023-02-13 19:15 | disposition home or self-care (01) | DRG 313 ==
LOC: ER 18:03 → TELE 21:45 → TELE-EAST 02-13 07:50
PROVIDERS: ADMIT Internal Medicine; ATTEND Student in an Organized Health Care Education/Training Program
DX: R07.9 Chest pain, unspecified (principal); I50.20 Unspecified systolic (congestive) heart failure; I42.8 Other cardiomyopathies; I11.0 Hypertensive heart disease with heart failure; K21.9 Gastro-esophageal reflux disease without esophagitis; I48.0 Paroxysmal atrial fibrillation; I25.10 Atherosclerotic heart disease of native coronary artery without angina pectoris; E78.5 Hyperlipidemia, unspecified; M19.90 Unspecified osteoarthritis, unspecified site; I25.2 Old myocardial infarction; Z95.5 Presence of coronary angioplasty implant and graft; Z90.710 Acquired absence of both cervix and uterus
CPT/HCPCS: 36415; 71045; 80053; 80061; 83036; 83880; 84484; 85025; 93005; 93306; 96374; G0378

== ENCOUNTER 2023-03-26 18:16 | Emergency (ER) | payer OTHER ==
[~2023-03-26] VITALS: Ht 160 cm; Wt 48.7 kg
[~2023-03-26 18:16] MED LIST changes: +HYDR25TA5 PO; +ISO60SRT PO; +LOSA50TA46 PO; -MET25T PO; +PANT40T PO
[2023-03-26 19:17] LABS: Basophils # (auto) 0.1 10 ^3/uL (0-0.2); Basophils % (auto) 0.7 % (0.0-2.0); Eosinophils # (auto) 0 10 ^3/uL (0-0.8); Eosinophils % (auto) 0.4 % (0.0-7.0); Hematocrit 39.4 % (36.0-46.0); Hemoglobin 13.2 g/dL (12.2-16.2); Lymphocytes % (auto) 9.1 % (10.0-50.0); Mean Corpuscular Hemoglobin 29.5 pg (28.0-32.0); Mean Corpuscular Hgb Conc. 33.4 g/dL (32.0-36.0); Mean Corpuscular Volume 88.1 fL (80.0-100.0); Monocytes # (auto) 0.9 10 ^3/uL (0-1.3); Monocytes % (auto) 8.3 % (0.0-12.0); Neutrophils # (auto) 8.7 10 ^3/uL (1.6-8.6); Neutrophils % (auto) 81.5 % (37.0-80.0); Red Blood Cells 4.47 10^6/uL (4.0-5.20); Red Cell Distribution Width 13.5 % (11.8-14.3); White Blood Cell 10.6 10^3/uL (4.4-10.8)
[2023-03-26 19:34] LABS: Alanine Aminotransferase 14 U/L (7-40); Albumin 4.1 g/dL (3.2-4.8); Alkaline Phosphatase 74 U/L (46-116); Anion Gap 8 (5-15); Aspartate Aminotransferase 20 U/L (13-40); BUN/Creatinine Ratio 18.7 (10.0-20.0); Bilirubin, Total 0.8 mg/dL (0.2-1.0); Blood Urea Nitrogen 14 mg/dL (9-23); Calcium 9.4 mg/dL (8.7-10.4); Carbon Dioxide 26 mmol/L (20-30); Chloride 101 mmol/L (98-107); Glucose 116 mg/dL (74-106); Potassium 3.6 mmol/L (3.5-5.1); Sodium 135 mmol/L (136-145); Total Protein 7.3 g/dL (5.7-8.2)
[2023-03-26 21:15] VITALS: BP 149/69; PULSE 74; RESP 16; TEMP 98.5; O2SAT 93
== END 2023-03-26 21:21 | disposition home or self-care (01) ==
LOC: ER 18:16
DX: I48.91 Unspecified atrial fibrillation (principal); R53.1 Weakness; K21.9 Gastro-esophageal reflux disease without esophagitis; E78.5 Hyperlipidemia, unspecified; I10 Essential (primary) hypertension; Z88.6 Allergy status to analgesic agent; Z79.899 Other long term (current) drug therapy
CPT/HCPCS: 36415; 80053; 83880; 84484; 85025; 93005